=== PATIENT | female | born 1935 | race Caucasian/White ===

== ENCOUNTER 2018-11-12 09:44 | Emergency (ER) | payer MEDICARE ==
[2018-11-12] MEDS ORDERED: Ibuprofen 200 MG TAB ONE (10:22)
== END 2018-11-12 10:41 | disposition home or self-care (01) ==
LOC: BURERS 09:44
DX: J06.9 Acute upper respiratory infection, unspecified (principal); R09.81 Nasal congestion; I10 Essential (primary) hypertension; F03.90 Unspecified dementia, unspecified severity, without behavioral disturbance, psychotic disturbance, mood disturbance, and anxiety; Z79.899 Other long term (current) drug therapy; Z79.82 Long term (current) use of aspirin
CPT/HCPCS: 99283

== ENCOUNTER 2018-12-29 08:25 | Emergency (ER) | payer MEDICARE ==
[2018-12-29] MEDS ORDERED: Benzonatate 100 MG CAP ONE (08:56)
[2018-12-29] MEDS ORDERED: AMOXicillin 250 MG CAP ONE (08:56)
== END 2018-12-29 09:03 | disposition home or self-care (01) ==
LOC: BURERS 08:25
DX: J20.9 Acute bronchitis, unspecified (principal); J02.9 Acute pharyngitis, unspecified; F03.90 Unspecified dementia, unspecified severity, without behavioral disturbance, psychotic disturbance, mood disturbance, and anxiety; I10 Essential (primary) hypertension
CPT/HCPCS: 99283

== ENCOUNTER 2019-01-03 10:02 | Inpatient (IN) | payer MEDICARE ==
[2019-01-03 10:26] LABS: #Basophils 0.1 thou/uL (0.0-0.2); #Lymphocytes 0.6 thou/uL (1.20-3.40); #Monocytes 0.8 thou/uL (0.11-0.59); %Basophils 0.8 % (0.0-1.0); %Eosinophils 0.1 % (0.0-10.0); %Lymphocytes 7.3 % (21.0-51.0); %Monocytes 8.9 % (0.0-10.0); Hemoglobin 14.5 g/dL (12.0-16.0); Mean Corpuscular HGB CONC 31.7 g/dL (32.0-36.0); Mean Corpuscular Hemoglobin 28.7 pg (27.0-31.0); Mean Corpuscular Volume 90.5 fL (78.0-98.0); Mean Platelet Volume 6.1 fL (7.4-10.4); Platelet Count 142 thou/uL (130-400); RBC Distribution Width 13.4 % (11.5-14.5); Red Blood Cell (RBC) Count 5.05 mill/uL (4.20-5.40); White Blood Cell (WBC) Count 8.4 thou/uL (4.8-10.8)
[2019-01-03] MEDS ORDERED: Sodium Chloride 0.9% 100 ML ONE (10:40)
[2019-01-03] MEDS ORDERED: Acetaminophen 500 MG TAB ONE ×2 (10:40→10:41)
[2019-01-03] MEDS ORDERED: Piperacillin/Tazobactam 4.5 GM VIAL ONE (10:40)
[2019-01-03] MEDS ORDERED: Azithromycin 250 MG TAB ONE (10:40)
[2019-01-03 10:43] LABS: Clarity Cloudy (Clear)
[2019-01-03 10:44] LABS: ALT (SGPT) 46 U/L (8-55); AST (SGOT) 35 U/L (5-34); Albumin 4.6 g/dL (3.4-4.8); Alkaline Phosphatase 79 U/L (40-150); Anion Gap 18 mmol/L (10-20); BUN (Urea Nitrogen) 15 mg/dL (9.8-20.1); Bilirubin, Total 0.4 mg/dL (0.2-1.2); Calc. Creatinine Clearance 0 mL/min (70-130); Calcium 10.1 mg/dL (7.8-10.44); Carbon Dioxide 21 mmol/L (23-31); Chloride 104 mmol/L (98-107); Estimated GFR-MDRD 61; Globulin 3.1 g/dL (2.4-3.5); Glucose 118 mg/dL (83-110); Potassium 4.3 mmol/L (3.5-5.1); Protein, Total 7.7 g/dL (6.0-8.3); Sodium 139 mmol/L (136-145)
[2019-01-03 10:44] LABS: Bilirubin Negative (Negative); Blood, Urine Small (Negative); Glucose, Urine (Dipstick) Negative (Negative); Leukocyte Large (Negative); Nitrite Positive (Negative); Protein, Urine (Dipstick) 30 mg/dL (Neg-Trace); Urobilinogen 0.2 mg/dL (Less than 2)
[2019-01-03 10:51] LABS: Bacteria/HPF 4+ HPF (None Seen); Broad Cast None Seen LPF (None Seen); Calcium Oxalate Crystals None Seen HPF (None Seen); Cellular Cast None Seen LPF (None Seen); Crystals/HPF None Seen HPF (Negative); Epithelial Cast None Seen LPF (None Seen); Fatty Cast None Seen LPF (None Seen); Mucous/LPF None Seen LPF (<2+); Other Casts None Seen LPF (None Seen); Oval Fat Bodies/HPF None Seen HPF (None Seen); Red Blood Cell Cast None Seen LPF (None Seen); Renal Epithelial None Seen HPF (None Seen); Sperm/HPF None Seen HPF (None Seen); Squamous Epithelial None Seen HPF (0-3); Transitional Epithelial None Seen HPF (None Seen); Trichomonas/HPF None Seen HPF (None Seen); Triple Phosphate Crystal None Seen HPF (None Seen); Unclassified Crystals None Seen HPF (None Seen); WBC/HPF 21-50 HPF (0-3); Waxy Cast None Seen LPF (None Seen); White Blood Cell Cast None Seen LPF (None Seen); Yeast-Budding None Seen HPF (None Seen); Yeast-Hyphae None Seen HPF (None Seen)
[2019-01-03] MEDS ORDERED: Oseltamivir 75 MG CAP ONE (11:39)
[2019-01-03] MEDS ORDERED: Ondansetron ODT 4 MG TAB PO PRN (12:49)
[2019-01-03] MEDS ORDERED: Acetaminophen 325 MG TAB PO PRN (12:49)
[2019-01-03] MEDS ORDERED: Ondansetron PF 4 MG/2 ML Vial SLOW IVP PRN (12:49)
--- NOTE | 2019-01-03 13:26 | RAD ---
AP PORTABLE CHEST: 01/03/2019 1018 HOURS COMPARISON: None available. FINDINGS: The heart is probably normal in size for age and portable filming. There is no vascular congestion, edema, or pleural effusion. No infiltrate is seen to suggest pneumonia. The bones are mildly osteop enic. There may be some calcific tendinitis in the right shoulder. IMPRESSION: No acute thoracic finding. POS: [facility]
[2019-01-03] MEDS: Dextrose 5 %-0.45 % NaCl 1,000 ML IV SCH (13:47)
[2019-01-03] MEDS: cefTRIAXone\\ROCEPHIN 1 GM in Sodium Chloride 0.9% 100 ML IVPB SCH (13:48)
[2019-01-03] MEDS ORDERED: Oseltamivir 75 MG CAP PO SCH (15:00)
[2019-01-03] MEDS ORDERED: Prevnar 13-Val Conj/PF 0.5 ML SYRINGE IM ONE (19:00)
--- NOTE | 2019-01-04 02:46 | HP ---
CHIEF COMPLAINT: Generalized malaise and fever. HISTORY OF PRESENT ILLNESS: The patient is an elderly white female, who has a history of some [id number] dementia, was brought into the emergency room by her with several-day history of progressive weakness. reports the patient actually has been feeling sick for about three weeks, went to the emergency room a few days ago, was diagnosed with an upper respiratory infection, and placed on amoxicillin. The patient has progressively worsened. Reports a fever of greater than 101.2. states that the patient was so weak on the day of admission that he had to lift her up from the toilet due to her overall malaise. The patient had fevers, chills, decreased appetite with her malaise, as well as a cough, rhinorrhea. The patient denies any dysuria, hematuria, or change in urinary frequency, but she has had significantly decreased appetite. She does report a cough with mainly dry. The patient was evaluated in the emergency room, was diagnosed with possible UTI due to dirty urine, and an influenza A test positive. PAST MEDICAL HISTORY: 1. Hypertension. 2. Dementia, [id number]. The patient is a poor historian. PAST SURGICAL HISTORY: Includes bilateral knee replacement. CURRENT MEDICATIONS: The patient apparently is on hypertensive medications, the dose unknown at this time. We will try to review the patient's office records. ALLERGIES: NO KNOWN DRUG ALLERGIES. SOCIAL HISTORY: No history of alcohol or social drug use. The patient lives with her and historically been independent with her activities of daily living, but again has progressively gotten worse, especially with short-term memory over the last year to two years. REVIEW OF SYSTEMS: The patient denies any visual changes. Sore throat has resolved. The patient reports decreased appetite without nausea or vomiting. The patient has had frequent loose stools without abdominal pain. The patient denies any rashes. No chest pain or shortness of breath other than with cough. The patient denies abdominal pain. No recent significant weight loss. No weight gain. The patient reports generalized achiness, but no focalized back or flank pain. No hematuria reported by patient as well. PHYSICAL EXAMINATION: GENERAL: An elderly white female, tired-appearing, lying in bed. VITAL SIGNS: Temperature was 101.3 in the emergency room, blood pressure was 168/86, pulse was 110, respiratory rate was 20, and O2 saturation was 100% on room air. HEENT: Oropharynx, mucous membranes were slightly dry. No lesions were noted. NECK: Supple. No mass palpated. CHEST: Had coarse breath sounds bilaterally. HEART: Regular rate and rhythm. ABDOMEN: Soft. Bowel sounds positive in all four quadrants. Nontender. No masses are palpated. EXTREMITIES: Showed no cyanosis, clubbing, or edema. DIAGNOSTIC STUDIES: Chest x-ray was performed which showed no acute findings. LABORATORY DATA: CBC had a white count of 8400 with a left shift. Chemistry showed a glucose of 118, non-fasting, otherwise none. No abnormalities. Urinalysis showed small blood, nitrite positive, 4 to 6 rbc's, 21 to 50 wbc's, leukocyte esterase positive, and 4+ bacteria. Urine culture was pending. Influenza A test was performed, and it was positive. ASSESSMENT: 1. Urinary tract infection. The patient appears to be dehydrated. She got a 1 L IV fluid of normal saline in the emergency room. We will continue on her IV fluids and oral fluids as tolerated. The patient likely has a urinary tract infection. Urine culture is pending. We will place her on Rocephin 1 g IV q.24 hours. 2. Flu. The patient influenza A positive, although it sounds like she may have had symptoms for several days. She actually became febrile within the last 24 hours. We will put her on Tamiflu 150 mg p.o. b.i.d. 3. Dementia. The patient is unsure of her medications. We will try to look at her office records, but she may warrant followup for her progressive dementia, likely Alzheimer's type. 4. Disposition. The patient is a fall risk. We will have fall precautions. PLAN: Plan is to be discharge to home, when she has improved. Job ID: [id number]
[2019-01-04 04:44] LABS: ALT (SGPT) 41 U/L (8-55); AST (SGOT) 35 U/L (5-34); Alkaline Phosphatase 62 U/L (40-150); Anion Gap 13 mmol/L (10-20); BUN (Urea Nitrogen) 12 mg/dL (9.8-20.1); Bilirubin, Total 0.4 mg/dL (0.2-1.2); Calc. Creatinine Clearance 0 mL/min (70-130); Calcium 9.3 mg/dL (7.8-10.44); Carbon Dioxide 24 mmol/L (23-31); Chloride 105 mmol/L (98-107); Estimated GFR-MDRD 63; Globulin 2.7 g/dL (2.4-3.5); Glucose 107 mg/dL (83-110); Potassium 3.7 mmol/L (3.5-5.1); Protein, Total 6.7 g/dL (6.0-8.3); Sodium 138 mmol/L (136-145)
[2019-01-04] MEDS: Dextrose 5 %-0.45 % NaCl 1,000 ML IV SCH ×2 (04:57→15:40)
[2019-01-04 05:04] LABS: Hemoglobin 12.7 g/dL (12.0-16.0); Mean Corpuscular HGB CONC 32.3 g/dL (32.0-36.0); Mean Corpuscular Hemoglobin 29.2 pg (27.0-31.0); Mean Corpuscular Volume 90.3 fL (78.0-98.0); Platelet Count 125 thou/uL (130-400); RBC Distribution Width 13.6 % (11.5-14.5); Red Blood Cell (RBC) Count 4.36 mill/uL (4.20-5.40)
[2019-01-04 05:29] LABS: Manual Diff?? YES
[2019-01-04 05:30] LABS: Band 10 % (5-11); Monocytes 12 % (0-10); Neutrophil 48 % (42-75)
[2019-01-04 05:31] LABS: Lymphocytes 30 % (21-51)
[2019-01-04 05:32] LABS: Platelet Morphology Comment Appears Decreased
[2019-01-04 05:33] LABS: RBC Morphology Normal
[2019-01-04] MEDS: Oseltamivir 75 MG CAP PO SCH ×3 (09:00→21:39)
[2019-01-04] MEDS: cefTRIAXone\\ROCEPHIN 1 GM in Sodium Chloride 0.9% 100 ML IVPB SCH (12:45)
[2019-01-05 04:37] VITALS: BP 179/89; TEMP 97.9
[2019-01-05] MEDS: Oseltamivir 75 MG CAP PO SCH (08:49)
[2019-01-05] MEDS ORDERED: cefTRIAXone\\ROCEPHIN 1 GM VIAL IM SCH (13:15)
[2019-01-05] MEDS ORDERED: Lidocaine 1% PF 5 ML VIAL ONE (13:40)
--- NOTE | 2019-01-06 05:38 | DIS ---
DATE OF ADMISSION: 01/03/2019 DATE OF DISCHARGE: 01/05/2019 ADMISSION DIAGNOSES: 1. Influenza A positive. 2. Urinary tract infection with sepsis. 3. Dehydration and weakness. BRIEF SUMMARY OF HISTORY AND PHYSICAL: The patient is an 83-year-old white female, who had a several-day history of progressive weakness, URI like symptoms, decreased appetite, and overall malaise. She was initially seen in the emergency room and diagnosed with the URI and placed on amoxicillin. She worsened, re-presented to the emergency room and at that time was diagnosed with a UTI as well as influenza A positive. Of note, her as well is influenza A positive. BRIEF SUMMARY OF HOSPITAL COURSE: The patient was admitted to the floor. She was placed on IV fluids due to dehydration as well as Rocephin 1 g IV q.24 hours and Tamiflu 75 mg p.o. b.i.d. Urine culture came back greater than 100,000 E coli sensitive to everything but ampicillin. Within the next 24 to 36 hours, the patient had significant dramatic improvement. Her malaise and weakness significantly improved with hydration. Her appetite improved back to her baseline. She was able to ambulate and transfer without difficulties and was eating regular meals to the point where she was stable enough to be discharged on 01/05/2019. The patient was afebrile for greater than 24 hours. DISCHARGE MEDICATIONS: 1. Tamiflu 75 mg p.o. b.i.d. for a full 5-day course. 2. Bactrim double-strength one tablet p.o. b.i.d. for 7 days. Of note, the patient has significant elevated systolic blood pressure in the 160s during her hospital stay. This will need to followed up as an outpatient basis and may need long-term oral medications. Also, the patient has significant short-term memory loss and easy confusion consistent with Alzheimer's type dementia. She would likely need a full outpatient workup to evaluate her dementia, which may have been already occurring under the care of her primary care physician, Dr. Janett Barahona. The patient will follow up with her primary care within 7 to 10 days. Her activity and diet will be as tolerated. Job ID: [id number]
== END 2019-01-05 15:36 | disposition home or self-care (01) | DRG 872 ==
LOC: BURERS 10:02 → BURMED 11:25
PROVIDERS: ADMIT Family Medicine; ATTEND Family Medicine
DX: A41.9 Sepsis, unspecified organism (principal); N39.0 Urinary tract infection, site not specified; I10 Essential (primary) hypertension; Z96.653 Presence of artificial knee joint, bilateral; E86.0 Dehydration; J10.1 Influenza due to other identified influenza virus with other respiratory manifestations; R53.1 Weakness; G30.9 Alzheimer's disease, unspecified; F02.80 Dementia in other diseases classified elsewhere, unspecified severity, without behavioral disturbance, psychotic disturbance, mood disturbance, and anxiety
CPT/HCPCS: 36415; 71045; 80053; 81003; 81015; 83605; 85025; 87040; 87077; 87086; 87186; 87804; A4353; J0696; J2001; J2543; J3490

== ENCOUNTER 2019-05-05 02:15 | Emergency (ER) | payer MEDICARE ==
[2019-05-05 02:35] LABS: Bilirubin Negative (Negative); Blood, Urine Trace (Negative); Clarity Hazy (Clear); Glucose, Urine (Dipstick) Negative (Negative); Leukocyte Large (Negative); Nitrite Negative (Negative); Protein, Urine (Dipstick) Negative (Neg-Trace); Urobilinogen 0.2 mg/dL (Less than 2)
[2019-05-05] MEDS ORDERED: Nitrofurantoin Monohyd/M-Cryst 100 MG CAP ONE (02:42)
[2019-05-05 02:44] LABS: Bacteria/HPF 2+ HPF (None Seen); RBC/HPF 0-3 HPF (0-3); Squamous Epithelial 0-3 HPF (0-3)
== END 2019-05-05 02:47 | disposition home or self-care (01) ==
LOC: BURERS 02:15
DX: N30.00 Acute cystitis without hematuria (principal); I10 Essential (primary) hypertension; F03.90 Unspecified dementia, unspecified severity, without behavioral disturbance, psychotic disturbance, mood disturbance, and anxiety
CPT/HCPCS: 81003; 81015; 87077; 87086; 87186; 99283

== ENCOUNTER 2019-10-26 08:48 | Emergency (ER) | payer MEDICARE ==
[2019-10-26 09:47] LABS: #Eosinphils 0.1 thou/uL (0.0-0.7); #Lymphocytes 1.6 thou/uL (1.20-3.40); #Monocytes 0.5 thou/uL (0.11-0.59); #Neutrophils 3.8 thou/uL (1.40-6.50); %Basophils 0.5 % (0.0-1.0); %Eosinophils 2.1 % (0.0-10.0); %Lymphocytes 26.1 % (21.0-51.0); %Monocytes 8.1 % (0.0-10.0); %Neutrophils 63.3 % (42.0-75.0); Hemoglobin 14.3 g/dL (12.0-16.0); Mean Corpuscular HGB CONC 32.5 g/dL (32.0-36.0); Mean Corpuscular Hemoglobin 29.6 pg (27.0-31.0); Mean Platelet Volume 7.3 fL (7.4-10.4); Platelet Count 174 thou/uL (130-400); RBC Distribution Width 13.1 % (11.5-14.5); Red Blood Cell (RBC) Count 4.84 mill/uL (4.20-5.40)
[2019-10-26 10:01] LABS: ALT (SGPT) 20 U/L (8-55); AST (SGOT) 21 U/L (5-34); Albumin 4.5 g/dL (3.4-4.8); Alkaline Phosphatase 73 U/L (40-110); Anion Gap 15 mmol/L (10-20); BUN (Urea Nitrogen) 17 mg/dL (9.8-20.1); Bilirubin, Total 0.6 mg/dL (0.2-1.2); Calc. Creatinine Clearance 0 mL/min (70-130); Calcium 10.2 mg/dL (7.8-10.44); Carbon Dioxide 26 mmol/L (23-31); Chloride 104 mmol/L (98-107); Estimated GFR-MDRD 60; Globulin 2.9 g/dL (2.4-3.5); Glucose 99 mg/dL (83-110); Lipase 39 U/L (8-78); Potassium 4.5 mmol/L (3.5-5.1); Protein, Total 7.4 g/dL (6.0-8.3); Sodium 140 mmol/L (136-145)
[2019-10-26] MEDS ORDERED: Ondansetron PF 4 MG/2 ML Vial ONE (10:04)
[2019-10-26] MEDS ORDERED: Morphine 2 MG/ML SYRINGE ONE (10:04)
[2019-10-26] MEDS ORDERED: Ketorolac Tromethamine 30 MG/ML VIAL ONE (10:04)
[2019-10-26] MEDS ORDERED: Iopamidol 370 76% 100 ML VIAL ONE (10:11)
--- NOTE | 2019-10-26 10:17 | CT ---
CT ABDOMEN AND PELVIS WITH CONTRAST: 10/27/2019 HISTORY/TECHNIQUE: A spiral CT of the abdomen and pelvis was done for evaluation of left lower quadrant pain. Axial slic es were acquired after giving IV contrast. Oral contrast was withheld by request. FINDINGS: Abdomen: The lung bases are clear. The liver is slightly generous in size but internally it appears n ormal. The spleen, pancreas, adrenal glands and abdominal aorta show no acute findings. There has bee n a prior cholecystectomy. There is a solitary left kidney with a 1.2 cm exophytic cyst attached to i ts lower pole. No right kidney or ectopic kidney is seen. The aorta shows considerable arteriosclerot ic change in it, including at the origins of the celiac, the SMA and the left renal arteries. The bowel shows no distention or wall thickening. There are fluid-filled loops of mainly small bowel, though there is some fluid in the right colon as well. The reynoso are not thick and there is no stran ding around the bowel. A few diverticula are seen in the sigmoid region but there are no current find ings of diverticulitis. No free air or free fluid is seen. Pelvis: CT of the pelvis shows a fat-filled left inguinal hernia. No pelvic masses, free fluid or inf lammatory changes are appreciated. Degenerative changes are present in the lumbar spine with minimal anterolisthesis of L4 and L5 and a degenerated, concentrically bulging disk at L5-S1. IMPRESSION: 1. Nonspecific fluid-filled loops of small bowel but no distention or thickening. No evidence of dive rticulitis at this time. Mild diverticulosis is present. 2. Fat-filled left inguinal hernia. 3. Solitary left kidney. 4. Borderline hepatic size but it otherwise appears normal. Report called to Dr. De La Rosa at 0959 hours on 10/26/2019. CODE CR POS: HOME
--- NOTE | 2019-10-26 10:21 | RAD ---
PORTABLE CHEST: 10/26/2019 HISTORY/TECHNIQUE: An AP portable film at 0957 shows mild cardiomegaly that is comparable to the prior study. FINDINGS: There is no vascular congestion, edema or pleural effusion. Some minor scarring is suggested in the l leonel bases, especially around the cardiac apex. No lobar infiltrates are seen. Calcification of the ao rta is evident. IMPRESSION: Mild cardiomegaly with little difference since the 2019 study. POS: [facility]
[2019-10-26 10:42] LABS: Bilirubin Negative (Negative); Blood, Urine Trace (Negative); Clarity Cloudy (Clear); Glucose, Urine (Dipstick) Negative (Negative); Leukocyte Large (Negative); Nitrite Positive (Negative); Protein, Urine (Dipstick) Negative (Neg-Trace); Urobilinogen 0.2 mg/dL (Less than 2)
[2019-10-26 10:44] LABS: Bacteria/HPF 4+ HPF (None Seen); Broad Cast None Seen LPF (None Seen); Calcium Oxalate Crystals None Seen HPF (None Seen); Cellular Cast None Seen LPF (None Seen); Epithelial Cast None Seen LPF (None Seen); Fatty Cast None Seen LPF (None Seen); Mucous/LPF None Seen LPF (<2+); Other Casts None Seen LPF (None Seen); Oval Fat Bodies/HPF None Seen HPF (None Seen); RBC/HPF 0-3 HPF (0-3); Red Blood Cell Cast None Seen LPF (None Seen); Renal Epithelial None Seen HPF (None Seen); Sperm/HPF None Seen HPF (None Seen); Transitional Epithelial None Seen HPF (None Seen); Trichomonas/HPF None Seen HPF (None Seen); Triple Phosphate Crystal None Seen HPF (None Seen); Unclassified Crystals None Seen HPF (None Seen); WBC/HPF Greater Than 50 HPF (0-3); Waxy Cast None Seen LPF (None Seen); White Blood Cell Cast None Seen LPF (None Seen); Yeast-Budding None Seen HPF (None Seen); Yeast-Hyphae None Seen HPF (None Seen)
[2019-10-26] MEDS ORDERED: Cephalexin 250 MG CAP ONE (10:54)
== END 2019-10-26 11:16 | disposition home or self-care (01) ==
LOC: BURERS 08:48
DX: N30.00 Acute cystitis without hematuria (principal); I10 Essential (primary) hypertension; F03.90 Unspecified dementia, unspecified severity, without behavioral disturbance, psychotic disturbance, mood disturbance, and anxiety
CPT/HCPCS: 71045; 74177; 80053; 81003; 81015; 83690; 85025; 87077; 87086; 87186; 93005; 96374; 96375; A4353; J1885; J2270; J2405; Q9967

== ENCOUNTER 2020-01-07 12:17 | Emergency (ER) | payer MEDICARE ==
[2020-01-07 13:11] LABS: #Eosinphils 0.1 thou/uL (0.0-0.7); #Lymphocytes 1.8 thou/uL (1.20-3.40); #Monocytes 0.6 thou/uL (0.11-0.59); #Neutrophils 4.7 thou/uL (1.40-6.50); %Basophils 0.6 % (0.0-1.0); %Eosinophils 1.2 % (0.0-10.0); %Lymphocytes 24.7 % (21.0-51.0); %Monocytes 8.1 % (0.0-10.0); %Neutrophils 65.3 % (42.0-75.0); Hemoglobin 12.7 g/dL (12.0-16.0); Mean Corpuscular HGB CONC 30.9 g/dL (32.0-36.0); Mean Corpuscular Hemoglobin 29.4 pg (27.0-31.0); Mean Corpuscular Volume 94.9 fL (78.0-98.0); Mean Platelet Volume 6.8 fL (7.4-10.4); Platelet Count 164 thou/uL (130-400); RBC Distribution Width 13.1 % (11.5-14.5); Red Blood Cell (RBC) Count 4.32 mill/uL (4.20-5.40); White Blood Cell (WBC) Count 7.1 thou/uL (4.8-10.8)
[2020-01-07 13:26] LABS: ALT (SGPT) 12 U/L (8-55); AST (SGOT) 17 U/L (5-34); Albumin 4.1 g/dL (3.4-4.8); Alkaline Phosphatase 55 U/L (40-110); Anion Gap 13 mmol/L (10-20); BUN (Urea Nitrogen) 24 mg/dL (9.8-20.1); Bilirubin, Total 0.6 mg/dL (0.2-1.2); Calc. Creatinine Clearance 0 mL/min (70-130); Calcium 9.3 mg/dL (7.8-10.44); Carbon Dioxide 23 mmol/L (23-31); Chloride 108 mmol/L (98-107); Estimated GFR-MDRD 66; Globulin 2.5 g/dL (2.4-3.5); Glucose 100 mg/dL (83-110); Lipase 22 U/L (8-78); Potassium 4.1 mmol/L (3.5-5.1); Protein, Total 6.6 g/dL (6.0-8.3); Sodium 140 mmol/L (136-145)
[2020-01-07 13:48] LABS: Bilirubin Negative (Negative); Blood, Urine Small (Negative); Glucose, Urine (Dipstick) Negative (Negative); Ketone, Urine Negative (Negative); Leukocyte Moderate (Negative); Nitrite Positive (Negative); Protein, Urine (Dipstick) Negative (Neg-Trace); Specific Gravity, Urine 1.025 (1.005-1.030); Urobilinogen 0.2 mg/dL (Less than 2); pH, Urine 5.5 (5.0-9.0)
[2020-01-07 13:52] LABS: Clarity Cloudy (Clear); RBC/HPF 0-3 HPF (0-3); Squamous Epithelial 0-3 HPF (0-3); WBC/HPF Greater Than 50 HPF (0-3)
[2020-01-07 13:53] LABS: Bacteria/HPF 4+ HPF (None Seen)
[2020-01-07] MEDS ORDERED: cefTRIAXone\\ROCEPHIN 1 GM VIAL ONE (14:02)
--- NOTE | 2020-01-07 15:45 | CT ---
CT ABDOMEN AND PELVIS WITHOUT CONTRAST: 01/07/20 Comparison is made with a 10/26/19 study. The lung bases showed no acute infiltrates or effusions. The liver, spleen, pancreas, adrenal glands, and aorta showed no acute findings within the limitations of a noncontrast study. The aorta is dense ly calcified. There has been a prior cholecystectomy. Only a left kidney is seen. Aside from a small cyst in the lower pole, no specific abnormality was seen, and it does not appear much different than before. The bowel shows no distention. There is diverticulosis but no convincing findings of diverticulitis a t the moment. Some of the reynoso of the ascending and descending colon might initially appear a little thick, but the colon is collapsed and not well distended, so I would hesitate to put too much meanin g on the finding. There are no inflammatory changes seen around bowel at all. No free air or free flu id was present. CT of the pelvis shows no pelvis masses, fluid collections or inflammatory changes. IMPRESSION: Diverticulosis without convincing findings of diverticulitis. There are, therefore, no acute changes visualized. POS: HOME
== END 2020-01-07 14:40 | disposition home or self-care (01) ==
LOC: BURERS 12:17
DX: N39.0 Urinary tract infection, site not specified (principal); R19.7 Diarrhea, unspecified; I10 Essential (primary) hypertension; F03.90 Unspecified dementia, unspecified severity, without behavioral disturbance, psychotic disturbance, mood disturbance, and anxiety
CPT/HCPCS: 36415; 74176; 80053; 81003; 81015; 83605; 83690; 85025; 87077; 87086; 87186; 96361; 96365; J0696

== ENCOUNTER 2020-02-02 09:38 | Emergency (ER) | payer MEDICARE ==
[2020-02-02 10:40] LABS: Bilirubin Negative (Negative); Blood, Urine Small (Negative); Glucose, Urine (Dipstick) Negative (Negative); Ketone, Urine Negative (Negative); Leukocyte Moderate (Negative); Nitrite Positive (Negative); Protein, Urine (Dipstick) Negative (Neg-Trace); Specific Gravity, Urine 1.025 (1.005-1.030); Urobilinogen 0.2 mg/dL (Less than 2)
[2020-02-02 10:43] LABS: Clarity Cloudy (Clear)
[2020-02-02 10:44] LABS: Bacteria/HPF 4+ HPF (None Seen); Squamous Epithelial 0-3 HPF (0-3); WBC/HPF Greater Than 50 HPF (0-3)
[2020-02-02] MEDS ORDERED: Sulfameth/Trimethoprim DS 800-160mg TAB ONE (11:02)
--- NOTE | 2020-02-02 11:42 | CT ---
CT LUMBAR SPINE WITHOUT CONTRAST: Date: 02/02/[address] of lumbar spine was performed with multiplanar reconstruction. No fracture or area of bony destruction seen at any level. Findings by level follow: T12-L1: No acute findings. L1-L2: No acute findings. L2-L3: Mild facet arthritis. Mild ligamentous thickening. L3-L4: Mild spondylolisthesis of L3 on L4 due to moderately severe facet arthritis. Slight crowding of the thecal sac at this level. L4-L5: Slight spondylolisthesis due to severe facet arthritis. Moderate central canal stenosis due t o facet overgrowth and a bulging disc. On the left side, the disc may just touch the exiting L4 root. L5-S1: Degenerated disc with disc space narrowing. No focal disc protrusion. Facet arthritis. Incidental finding of significant calcified plaque formation at the bifurcation of the aorta that cau ses some significant stenosis of the proximal left common iliac artery. IMPRESSION: 1. Moderate spinal stenosis L4-L5, mild spinal stenosis L3-L4. 2. Mildly bulging disc at L5-S1 without any obvious impingement or focal protrusion. 3. Significant facet arthritis, particularly L3 and below. 4. Concentric bulging of the disc at L4-L5 may just touch the left L4 root. If a left L4 radiculopat hy were present, then the finding would take on more meaning. 5. Stenosis of proximal left common iliac artery at its origin due to plaque at the bifurcation. Findings discussed with Dr. Solorzano at 1034 hours on 02/02/2020. CODE CR. POS: HOME
--- NOTE | 2020-02-02 11:44 | CT ---
CT BRAIN WITHOUT CONTRAST: Date: 02/02/2020 The ventricles are normal in size for age and atrophy. Mild patchy hypolucency in the deep white brandon er is typical of chronic microvascular ischemic change. A tiny lacunar infarct is suggested in the ri ght basal ganglia, which is most likely old. There were no findings strongly suggestive of acute stro ke, mass, or edema. The calvarium appears intact. The visible paranasal sinuses and mastoid air cells are clear. IMPRESSION: Chronic ischemic changes as noted, but no acute intracranial findings. Preliminary report called to Dr. Solorazno at 1034 hours on 02/02/2020. CODE CR. POS: HOME
== END 2020-02-02 11:26 | disposition home or self-care (01) ==
LOC: BURERS 09:38
DX: I73.9 Peripheral vascular disease, unspecified (principal); M54.32 Sciatica, left side; N39.0 Urinary tract infection, site not specified; F03.90 Unspecified dementia, unspecified severity, without behavioral disturbance, psychotic disturbance, mood disturbance, and anxiety
CPT/HCPCS: 70450; 72131; 81003; 81015; 87077; 87086; 87186

== ENCOUNTER 2020-02-17 12:53 | Emergency (ER) | payer MEDICARE ==
[2020-02-17 13:38] LABS: #Eosinphils 0.1 thou/uL (0.0-0.7); #Lymphocytes 1.7 thou/uL (1.20-3.40); #Monocytes 0.6 thou/uL (0.11-0.59); %Basophils 0.5 % (0.0-1.0); %Eosinophils 1.2 % (0.0-10.0); %Lymphocytes 22.6 % (21.0-51.0); %Monocytes 8.2 % (0.0-10.0); %Neutrophils 67.5 % (42.0-75.0); Hemoglobin 12.7 g/dL (12.0-16.0); Mean Corpuscular HGB CONC 31.1 g/dL (32.0-36.0); Mean Corpuscular Hemoglobin 29.9 pg (27.0-31.0); Mean Platelet Volume 6.8 fL (7.4-10.4); Platelet Count 161 thou/uL (130-400); RBC Distribution Width 12.8 % (11.5-14.5); Red Blood Cell (RBC) Count 4.26 mill/uL (4.20-5.40); White Blood Cell (WBC) Count 7.4 thou/uL (4.8-10.8)
[2020-02-17 13:54] LABS: Bilirubin Small (Negative); Blood, Urine Negative (Negative); Clarity Clear (Clear); Glucose, Urine (Dipstick) Negative (Negative); Ketone, Urine Trace mg/dL (Negative); Leukocyte Negative (Negative); Nitrite Negative (Negative); Protein, Urine (Dipstick) Negative (Neg-Trace); Specific Gravity, Urine 1.025 (1.005-1.030); pH, Urine 5.5 (5.0-9.0)
[2020-02-17 14:01] LABS: ALT (SGPT) 13 U/L (8-55); AST (SGOT) 15 U/L (5-34); Albumin 4.1 g/dL (3.4-4.8); Alkaline Phosphatase 50 U/L (40-110); Anion Gap 14 mmol/L (10-20); BUN (Urea Nitrogen) 23 mg/dL (9.8-20.1); Bilirubin, Total 0.5 mg/dL (0.2-1.2); Calc. Creatinine Clearance 0 mL/min (70-130); Calcium 9.2 mg/dL (7.8-10.44); Carbon Dioxide 23 mmol/L (23-31); Chloride 106 mmol/L (98-107); Estimated GFR-MDRD 52; Globulin 2.4 g/dL (2.4-3.5); Glucose 92 mg/dL (83-110); Potassium 4.7 mmol/L (3.5-5.1); Protein, Total 6.5 g/dL (6.0-8.3); Sodium 138 mmol/L (136-145)
== END 2020-02-17 14:36 | disposition home or self-care (01) ==
LOC: BURERS 12:53
DX: S40.021A Contusion of right upper arm, initial encounter (principal); S30.0XXA Contusion of lower back and pelvis, initial encounter; S20.211A Contusion of right front wall of thorax, initial encounter; F03.90 Unspecified dementia, unspecified severity, without behavioral disturbance, psychotic disturbance, mood disturbance, and anxiety; Z79.899 Other long term (current) drug therapy; W19.XXXA Unspecified fall, initial encounter
CPT/HCPCS: 36415; 51701; 80053; 81003; 85025; 93005

== ENCOUNTER 2020-04-16 07:42 | Emergency (ER) | payer MEDICARE ==
[2020-04-16 08:23] LABS: Bilirubin Negative (Negative); Blood, Urine Trace (Negative); Clarity Cloudy (Clear); Glucose, Urine (Dipstick) Negative (Negative); Ketone, Urine Negative (Negative); Leukocyte Large (Negative); Nitrite Negative (Negative); Protein, Urine (Dipstick) Negative (Neg-Trace); Urobilinogen 0.2 mg/dL (Less than 2); pH, Urine 6.5 (5.0-9.0)
[2020-04-16 08:30] LABS: RBC/HPF 0-3 HPF (0-3)
[2020-04-16 08:31] LABS: Bacteria/HPF 3+ HPF (None Seen)
[2020-04-16] MEDS ORDERED: Sulfameth/Trimethoprim DS 800-160mg TAB ONE (08:40)
== END 2020-04-16 08:43 | disposition home or self-care (01) ==
LOC: BURERS 07:42
DX: N39.0 Urinary tract infection, site not specified (principal); I10 Essential (primary) hypertension; F03.90 Unspecified dementia, unspecified severity, without behavioral disturbance, psychotic disturbance, mood disturbance, and anxiety; Z79.899 Other long term (current) drug therapy
CPT/HCPCS: 81003; 81015; 99283

== ENCOUNTER 2020-05-12 08:20 | Emergency (ER) | payer MEDICARE ==
--- NOTE | 2020-05-12 09:23 | CT ---
CT head noncontrast HISTORY: Fall. Head injury. COMPARISON: 02/02/2020. FINDINGS: There is no evidence of acute intracranial hemorrhage or infarct. Scattered chronic ischemi c small vessel disease throughout the periventricular white matter is again demonstrated. Old lacunar infarcts at the right basal ganglia. There is no mass effect or shift of midline structures. Tiny dystrophic calcification associated with the left optic nerve sheath is now better visualized. Prominent calcification within the arterial structures of the brain base. IMPRESSION : No acute intracranial abnormalities are demonstrated. Atherosclerosis.
--- NOTE | 2020-05-12 09:36 | RAD ---
CHEST 1 VIEW: COMPARISON: 10/26/2019. HISTORY: Fall. Pain. FINDINGS: Atherosclerosis of the aorta. Normal cardiac silhouette. The pulmonary vessels and hilum are normal . Costophrenic angles are clear. Lungs are hyperinflated with chronic changes. No consolidation or mass. NO pneumothorax or acute osseous abnormality. IMPRESSION: 1. Atherosclerosis. 2. No acute cardiopulmonary process. POS: [facility]
[2020-05-12 09:49] LABS: Hemoglobin 14.4 g/dL (12.0-16.0); Mean Corpuscular HGB CONC 33.2 g/dL (32.0-36.0); Mean Corpuscular Hemoglobin 30.8 pg (27.0-31.0); Mean Corpuscular Volume 92.8 fL (78.0-98.0); Mean Platelet Volume 8.7 fL (7.4-10.4); Platelet Count 119 thou/uL (130-400); RBC Distribution Width 12.9 % (11.5-14.5); Red Blood Cell (RBC) Count 4.66 mill/uL (4.20-5.40); White Blood Cell (WBC) Count 6.5 thou/uL (4.8-10.8)
[2020-05-12 09:53] LABS: Bilirubin Negative (Negative); Blood, Urine Moderate (Negative); Clarity Cloudy (Clear); Glucose, Urine (Dipstick) Negative (Negative); Ketone, Urine 40 mg/dL (Negative); Leukocyte Small (Negative); Nitrite Positive (Negative); Protein, Urine (Dipstick) 100 mg/dL (Neg-Trace); Specific Gravity, Urine 1.025 (1.005-1.030); Urobilinogen 0.2 mg/dL (Less than 2); pH, Urine 5.5 (5.0-9.0)
[2020-05-12 09:59] LABS: Bacteria/HPF 4+ HPF (None Seen); WBC/HPF 21-50 HPF (0-3)
[2020-05-12 10:00] LABS: Oval Fat Bodies/HPF Rare HPF (None Seen)
[2020-05-12 10:03] LABS: Anion Gap 18 mmol/L (10-20); BUN (Urea Nitrogen) 18 mg/dL (9.8-20.1); CK (CPK) 4974 U/L (29-168); Calc. Creatinine Clearance 0 mL/min (70-130); Calcium 9.3 mg/dL (7.8-10.44); Carbon Dioxide 23 mmol/L (23-31); Chloride 102 mmol/L (98-107); Estimated GFR-MDRD 61; Glucose 83 mg/dL (83-110); Potassium 3.6 mmol/L (3.5-5.1); Sodium 139 mmol/L (136-145)
[2020-05-12] MEDS ORDERED: Enoxaparin Sodium 40 MG/0.4 ML SYRINGE ONE ×2 (10:15→10:17)
[2020-05-12] MEDS ORDERED: Aspirin Chewable 81 MG TAB ONE (10:15)
[2020-05-12] MEDS ORDERED: cefTRIAXone\\ROCEPHIN 1 GM VIAL ONE (10:15)
[2020-05-12] MEDS ORDERED: Nitroglycerin 50 MG/250 ML BOT 250 ML ONE (10:15)
[2020-05-12] MEDS ORDERED: Sodium Chloride 0.9% 100 ML ONE (10:15)
[2020-05-12 10:17] LABS: CKMB 18.6 ng/mL (0-6.6)
[2020-05-12 10:24] LABS: Band 25 % (5-11); Lymphocytes 23 % (21-51); MDiff Complete? YES; Monocytes 14 % (0-10); Neutrophil 35 % (42-75); Platelet Morphology Comment Appears Adequate; Reactive Lymphocytes 3 % (0-10)
--- NOTE | 2020-05-12 10:29 | RAD ---
1 VIEW PELVIS: Date: 05/12/2020 HISTORY: Fall. Pain. FINDINGS: Sacral ala are preserved. Bony pelvis is intact. Obturator rings are intact. Contour of both femoral heads are maintained. No fracture. Symmetric hip joint spaces. Atherosclerosis identified. IMPRESSION: No evidence of fracture. POS: [facility]
--- NOTE | 2020-05-12 10:46 | CT ---
CT OF THE CERVICAL SPINE WITHOUT CONTRAST: Date: 05/12/2020 INDICATION: History of fall and neck pain. COMPARISON: None. FINDINGS: The spinal alignment is within normal limits. Bone mineralization appears within normal limits. Crani ocervical alignment appears within normal limits. Mastoid air cells and visualized posterior mandible appear intact. No displaced fracture is demonstrated. The visualized prevertebral and paravertebral soft tissues cristo ear within normal limits. Lung apices are clear. There is heterogeneity of the thyroid gland. There i s moderate calcification of the visualized common carotid, carotid bulbs, and proximal internal and e xternal carotid arteries. IMPRESSION: 1. No acute fracture or subluxation. 2. Mild spondylosis of the cervical spine. POS: [facility]
[2020-05-12] MEDS ORDERED: Iopamidol 370 76% 100 ML VIAL ONE (12:49)
--- NOTE | 2020-05-12 13:37 | CT ---
CT ANGIOGRAM OF THORACIC AND ABDOMINAL AORTA CT AORTIC DISSECTION PROTOCOL: Date: 05/12/2020 COMPARISON: None. CORRELATION: Stone protocol CT and abdomen/pelvic CT dated 01/07/2020 and 10/26/2019 respectively. TECHNIQUE: CT angiogram of the thoracic and abdominal aorta performed in the axial plane. 3-D reformatted images are submitted for interpretation. FINDINGS: CHEST CT: Heterogeneous thyroid gland. No evidence of axillary lymphadenopathy. No mediastinal mass, lymphadenopathy, or hematoma. Heart size is normal. No significant pericardial fluid. There is adequate contrast opacification of pulmonary arterial system to level of segmental arteries. No filling defect to suggest thromboembolism. Trachea and central bronchi are patent. Scattered ground-glass opacities are nonspecific. There is a ground-glass nodule in the superior segment of the left lower lobe measuring 0.6 x 0.5 cm. No pleural effusion or pneumothorax. Trachea and central bronchi are patent. ABDOMEN CT: There is appropriate arterial phase enhancement of the liver, spleen, pancreas, and adrenal glands. Absent right kidney, similar to the previous exam. There is evidence of postsurgical change compatibl e with nephrectomy and cholecystectomy. No mesenteric mass, lymphadenopathy, free air, or free fluid. Limited evaluation of the alimentary canal by lack of oral contrast. No evidence of bowel obstruction . No mesenteric mass, lymphadenopathy, free air, or free fluid. Limited evaluation of the abdomen due to motion degradation. There are no lytic or blastic lesions in the osseous structures. Grade I anterolisthesis of L4 upon L 5. CT ANGIOGRAM: There is appropriate enhancement and luminal diameter at the root of the aorta, ascending thoracic ao rta, aortic arch, descending thoracic aorta, and abdominal aorta. No evidence of dissection or aneury sm. There is appropriate enhancement at the origin of the great vessels of the neck. There is appropr iate enhancement of the left renal artery ostium. There is mild atherosclerotic disease. Solitary lef t renal artery. There is atherosclerosis with moderate luminal narrowing at the origin of the celiac artery. Atherosclerosis and mild narrowing at the origin of the superior mesenteric artery. Inferior mesenteric artery appears to be patent. Visualized iliac arteries are patent. IMPRESSION: 1. No evidence of aneurysm or dissection. 2. Findings compatible with right nephrectomy and cholecystectomy. 3. Atherosclerosis involving the abdominal vasculature as detailed above. 4. Ground-glass nodule in the superior segment of the left lower lobe. CODE LN.
== END 2020-05-12 13:15 | disposition short-term general hospital (02) ==
LOC: BURERS 08:20
DX: I21.4 Non-ST elevation (NSTEMI) myocardial infarction (principal); I16.1 Hypertensive emergency; I10 Essential (primary) hypertension; Z79.899 Other long term (current) drug therapy
CPT/HCPCS: 51701; 70450; 71045; 71275; 72125; 72170; 74174; 80048; 81003; 81015; 82550; 82553; 84484; 85025; 93005; 96365; 96368; 96372; J0696; J1650; J3490; Q9967

== ENCOUNTER 2020-05-19 11:22 | Inpatient (IN) | payer MEDICARE ==
[2020-05-19] MEDS ORDERED: hydrALAZINE 25 MG TAB PO SCH (15:15)
[2020-05-19 16:22] VITALS: BMI 27.2
[2020-05-19] MEDS: Cefdinir 300 MG CAP PO SCH (21:29)
[2020-05-19] MEDS: hydrALAZINE 25 MG TAB PO SCH (21:29)
[2020-05-20 05:24] LABS: #Eosinphils 0.1 thou/uL (0.0-0.7); #Lymphocytes 0.9 thou/uL (1.20-3.40); #Monocytes 0.5 thou/uL (0.11-0.59); #Neutrophils 3.4 thou/uL (1.40-6.50); %Basophils 0.4 % (0.0-1.0); %Eosinophils 1.7 % (0.0-10.0); %Monocytes 10.5 % (0.0-10.0); %Neutrophils 69.5 % (42.0-75.0); Hemoglobin 12.5 g/dL (12.0-16.0); Mean Corpuscular HGB CONC 33.4 g/dL (32.0-36.0); Mean Corpuscular Volume 89.8 fL (78.0-98.0); Mean Platelet Volume 8.7 fL (7.4-10.4); Platelet Count 147 thou/uL (130-400); RBC Distribution Width 12.7 % (11.5-14.5); Red Blood Cell (RBC) Count 4.15 mill/uL (4.20-5.40); White Blood Cell (WBC) Count 4.8 thou/uL (4.8-10.8)
[2020-05-20 05:35] LABS: ALT (SGPT) 107 U/L (8-55); AST (SGOT) 126 U/L (5-34); Albumin 3.4 g/dL (3.4-4.8); Alkaline Phosphatase 56 U/L (40-110); Anion Gap 15 mmol/L (10-20); BUN (Urea Nitrogen) 12 mg/dL (9.8-20.1); Bilirubin, Total 0.6 mg/dL (0.2-1.2); Calc. Creatinine Clearance 66 mL/min (70-130); Calcium 8.8 mg/dL (7.8-10.44); Carbon Dioxide 24 mmol/L (23-31); Chloride 104 mmol/L (98-107); Globulin 2.5 g/dL (2.4-3.5); Glucose 102 mg/dL (83-110); Potassium 3.1 mmol/L (3.5-5.1); Protein, Total 5.9 g/dL (6.0-8.3); Sodium 140 mmol/L (136-145)
[2020-05-20] MEDS ORDERED: Potassium Chloride 20 MEQ TAB PO SCH (06:45)
[2020-05-20] MEDS: Amiodarone 200 MG TAB PO SCH ×2 (08:51→08:53)
[2020-05-20] MEDS: hydrALAZINE 25 MG TAB PO SCH ×3 (08:52→20:51)
[2020-05-20] MEDS: Cefdinir 300 MG CAP PO SCH ×2 (08:53→20:50)
[2020-05-20] MEDS: Aspirin 325 mg Enteric Coated Tablet PO SCH (08:53)
[2020-05-20] MEDS: Potassium Chloride 20 MEQ TAB PO SCH (08:54)
[2020-05-20] MEDS ORDERED: FLU VACC QS2020-21(65YR UP)/PF 240 MCG/0.7 ML SYRINGE IM ONE (09:00)
[2020-05-21] MEDS: Aspirin 325 mg Enteric Coated Tablet PO SCH (08:40)
[2020-05-21] MEDS: Cefdinir 300 MG CAP PO SCH ×2 (08:41→20:35)
[2020-05-21] MEDS: Potassium Chloride 20 MEQ TAB PO SCH (08:41)
[2020-05-21] MEDS: hydrALAZINE 25 MG TAB PO SCH ×3 (08:42→20:35)
[2020-05-21] MEDS: Fluconazole 100 MG TAB PO SCH (17:38)
[2020-05-22 05:26] LABS: Hemoglobin 12.7 g/dL (12.0-16.0); Mean Corpuscular HGB CONC 32.3 g/dL (32.0-36.0); Mean Corpuscular Hemoglobin 29.4 pg (27.0-31.0); Mean Platelet Volume 9.3 fL (7.4-10.4); Platelet Count 150 thou/uL (130-400); RBC Distribution Width 12.6 % (11.5-14.5); Red Blood Cell (RBC) Count 4.34 mill/uL (4.20-5.40)
[2020-05-22 05:36] LABS: ALT (SGPT) 85 U/L (8-55); AST (SGOT) 56 U/L (5-34); Albumin 3.5 g/dL (3.4-4.8); Alkaline Phosphatase 56 U/L (40-110); Anion Gap 13 mmol/L (10-20); BUN (Urea Nitrogen) 12 mg/dL (9.8-20.1); Bilirubin, Total 0.8 mg/dL (0.2-1.2); Calc. Creatinine Clearance 66 mL/min (70-130); Carbon Dioxide 25 mmol/L (23-31); Chloride 101 mmol/L (98-107); Globulin 2.5 g/dL (2.4-3.5); Glucose 104 mg/dL (83-110); Potassium 3.4 mmol/L (3.5-5.1); Sodium 136 mmol/L (136-145)
[2020-05-22 05:46] LABS: Lymphocytes 17 % (21-51); MDiff Complete? YES; Monocytes 13 % (0-10); Neutrophil 64 % (42-75); Platelet Morphology Comment Appears Adequate; RBC Morphology Normal; Reactive Lymphocytes 6 % (0-10)
[2020-05-22] MEDS: Aspirin 325 mg Enteric Coated Tablet PO SCH (08:23)
[2020-05-22] MEDS: Cefdinir 300 MG CAP PO SCH (08:23)
[2020-05-22] MEDS: Potassium Chloride 20 MEQ TAB PO SCH ×3 (08:23→08:36)
[2020-05-22] MEDS: Amiodarone 200 MG TAB PO SCH (08:25)
[2020-05-22] MEDS: hydrALAZINE 25 MG TAB PO SCH ×3 (08:26→20:28)
[2020-05-22] MEDS: Fluconazole 100 MG TAB PO SCH (17:16)
[2020-05-23] MEDS: Potassium Chloride 20 MEQ TAB PO SCH (07:56)
[2020-05-23] MEDS: Aspirin 325 mg Enteric Coated Tablet PO SCH (07:56)
[2020-05-23] MEDS: hydrALAZINE 25 MG TAB PO SCH ×3 (07:57→20:59)
[2020-05-23] MEDS: Amiodarone 200 MG TAB PO SCH (07:57)
[2020-05-23] MEDS: Fluconazole 100 MG TAB PO SCH (17:21)
[2020-05-24] MEDS: Aspirin 325 mg Enteric Coated Tablet PO SCH (07:53)
[2020-05-24] MEDS: Amiodarone 200 MG TAB PO SCH (07:53)
[2020-05-24] MEDS: hydrALAZINE 25 MG TAB PO SCH ×3 (07:54→20:53)
[2020-05-24] MEDS: Potassium Chloride 20 MEQ TAB PO SCH (07:54)
[2020-05-24] MEDS: Fluconazole 100 MG TAB PO SCH (17:18)
[2020-05-24] MEDS: Megestrol Acetate 40 MG TAB PO SCH (20:53)
[2020-05-25 05:08] LABS: ALT (SGPT) 42 U/L (8-55); AST (SGOT) 23 U/L (5-34); Albumin 3.5 g/dL (3.4-4.8); Alkaline Phosphatase 54 U/L (40-110); Anion Gap 13 mmol/L (10-20); BUN (Urea Nitrogen) 18 mg/dL (9.8-20.1); Bilirubin, Total 0.6 mg/dL (0.2-1.2); Calc. Creatinine Clearance 52 mL/min (70-130); Calcium 9.5 mg/dL (7.8-10.44); Carbon Dioxide 28 mmol/L (23-31); Chloride 101 mmol/L (98-107); Globulin 2.7 g/dL (2.4-3.5); Glucose 124 mg/dL (83-110); Potassium 4.7 mmol/L (3.5-5.1); Protein, Total 6.2 g/dL (6.0-8.3); Sodium 137 mmol/L (136-145)
[2020-05-25] MEDS: Megestrol Acetate 40 MG TAB PO SCH ×2 (08:40→20:34)
[2020-05-25] MEDS: Aspirin 325 mg Enteric Coated Tablet PO SCH (08:40)
[2020-05-25] MEDS: Potassium Chloride 20 MEQ TAB PO SCH (08:40)
[2020-05-25] MEDS: Amiodarone 200 MG TAB PO SCH (08:41)
[2020-05-25] MEDS: hydrALAZINE 25 MG TAB PO SCH ×3 (08:43→20:34)
[2020-05-25] MEDS: Amlodipine 5 MG TAB PO SCH (08:44)
[2020-05-25] MEDS: Fluconazole 100 MG TAB PO SCH (17:13)
[2020-05-25] MEDS: Docusate 100 MG CAP PO SCH (20:34)
[2020-05-26] MEDS: hydrALAZINE 25 MG TAB PO SCH ×3 (09:37→21:16)
[2020-05-26] MEDS: Aspirin 325 mg Enteric Coated Tablet PO SCH (09:38)
[2020-05-26] MEDS: Potassium Chloride 20 MEQ TAB PO SCH (09:38)
[2020-05-26] MEDS: Docusate 100 MG CAP PO SCH ×2 (09:38→21:16)
[2020-05-26] MEDS: Megestrol Acetate 40 MG TAB PO SCH ×2 (09:39→21:16)
[2020-05-26] MEDS: Amiodarone 200 MG TAB PO SCH (09:39)
[2020-05-26] MEDS: Amlodipine 5 MG TAB PO SCH (09:39)
[2020-05-26] MEDS: Fluconazole 100 MG TAB PO SCH (17:14)
[2020-05-27] MEDS: hydrALAZINE 25 MG TAB PO SCH ×3 (08:42→20:59)
[2020-05-27] MEDS: Potassium Chloride 20 MEQ TAB PO SCH (08:43)
[2020-05-27] MEDS: Amiodarone 200 MG TAB PO SCH (08:44)
[2020-05-27] MEDS: Docusate 100 MG CAP PO SCH ×2 (08:44→20:58)
[2020-05-27] MEDS: Amlodipine 5 MG TAB PO SCH (08:44)
[2020-05-27] MEDS: Megestrol Acetate 40 MG TAB PO SCH ×2 (08:44→20:58)
[2020-05-27] MEDS: Aspirin 325 mg Enteric Coated Tablet PO SCH (08:45)
[2020-05-27] MEDS: Fluconazole 100 MG TAB PO SCH (17:55)
[2020-05-28] MEDS: Polyethylene Glycol 3350 17 GM Packet PO PRN (09:21)
[2020-05-28] MEDS: Docusate 100 MG CAP PO SCH ×2 (09:22→20:54)
[2020-05-28] MEDS: Amiodarone 200 MG TAB PO SCH (09:22)
[2020-05-28] MEDS: Potassium Chloride 20 MEQ TAB PO SCH (09:22)
[2020-05-28] MEDS: Aspirin 325 mg Enteric Coated Tablet PO SCH (09:22)
[2020-05-28] MEDS: Megestrol Acetate 40 MG TAB PO SCH ×2 (09:23→20:54)
[2020-05-28] MEDS: Amlodipine 5 MG TAB PO SCH (09:23)
[2020-05-28] MEDS: hydrALAZINE 25 MG TAB PO SCH ×3 (09:24→20:53)
[2020-05-28] MEDS ORDERED: Bisacodyl 10 MG SUPP PR PRN (11:07)
[2020-05-28] MEDS ORDERED: Milk Of Magnesia 30 ML UDCUP PO PRN (11:07)
[2020-05-28] MEDS ORDERED: Acetaminophen 325 MG TAB PO PRN (18:42)
[2020-05-29] MEDS: Polyethylene Glycol 3350 17 GM Packet PO PRN (08:55)
[2020-05-29] MEDS: Amiodarone 200 MG TAB PO SCH (08:56)
[2020-05-29] MEDS: Megestrol Acetate 40 MG TAB PO SCH ×2 (08:56→21:28)
[2020-05-29] MEDS: Potassium Chloride 20 MEQ TAB PO SCH (08:56)
[2020-05-29] MEDS: Aspirin 325 mg Enteric Coated Tablet PO SCH (08:56)
[2020-05-29] MEDS: Amlodipine 5 MG TAB PO SCH (08:57)
[2020-05-29] MEDS: hydrALAZINE 25 MG TAB PO SCH ×3 (08:58→21:28)
[2020-05-29] MEDS: Docusate 100 MG CAP PO SCH ×2 (08:58→21:28)
[2020-05-30] MEDS: Potassium Chloride 20 MEQ TAB PO SCH (09:08)
[2020-05-30] MEDS: Aspirin 325 mg Enteric Coated Tablet PO SCH (09:08)
[2020-05-30] MEDS: hydrALAZINE 25 MG TAB PO SCH ×3 (09:08→20:36)
[2020-05-30] MEDS: Amlodipine 5 MG TAB PO SCH (09:09)
[2020-05-30] MEDS: Docusate 100 MG CAP PO SCH ×2 (09:09→20:36)
[2020-05-30] MEDS: Amiodarone 200 MG TAB PO SCH (09:10)
[2020-05-30] MEDS: Megestrol Acetate 40 MG TAB PO SCH ×2 (09:11→20:36)
[2020-05-31] MEDS: Aspirin 325 mg Enteric Coated Tablet PO SCH (08:31)
[2020-05-31] MEDS: Amlodipine 5 MG TAB PO SCH (08:31)
[2020-05-31] MEDS: hydrALAZINE 25 MG TAB PO SCH ×3 (08:31→20:13)
[2020-05-31] MEDS: Potassium Chloride 20 MEQ TAB PO SCH (08:32)
[2020-05-31] MEDS: Amiodarone 200 MG TAB PO SCH (08:32)
[2020-05-31] MEDS: Megestrol Acetate 40 MG TAB PO SCH ×2 (08:32→20:13)
[2020-05-31] MEDS: Docusate 100 MG CAP PO SCH ×2 (08:32→20:13)
[2020-06-01] MEDS: Docusate 100 MG CAP PO SCH ×2 (08:35→20:37)
[2020-06-01] MEDS: Amlodipine 5 MG TAB PO SCH (08:35)
[2020-06-01] MEDS: hydrALAZINE 25 MG TAB PO SCH ×3 (08:35→20:37)
[2020-06-01] MEDS: Aspirin 325 mg Enteric Coated Tablet PO SCH (08:36)
[2020-06-01] MEDS: Amiodarone 200 MG TAB PO SCH (08:36)
[2020-06-01] MEDS: Potassium Chloride 20 MEQ TAB PO SCH (08:36)
[2020-06-01] MEDS: Megestrol Acetate 40 MG TAB PO SCH ×2 (08:36→20:37)
[2020-06-02] MEDS: Potassium Chloride 20 MEQ TAB PO SCH (09:11)
[2020-06-02] MEDS: Amlodipine 5 MG TAB PO SCH (09:13)
[2020-06-02] MEDS: Aspirin 325 mg Enteric Coated Tablet PO SCH (09:14)
[2020-06-02] MEDS: Amiodarone 200 MG TAB PO SCH (09:14)
[2020-06-02] MEDS: Megestrol Acetate 40 MG TAB PO SCH ×2 (09:14→21:51)
[2020-06-02] MEDS: hydrALAZINE 25 MG TAB PO SCH ×3 (09:14→21:51)
[2020-06-02] MEDS: Docusate 100 MG CAP PO SCH ×2 (09:15→21:51)
[2020-06-03 05:30] LABS: Anion Gap 15 mmol/L (10-20); BUN (Urea Nitrogen) 28 mg/dL (9.8-20.1); Calc. Creatinine Clearance 54 mL/min (70-130); Calcium 9.3 mg/dL (7.8-10.44); Carbon Dioxide 19 mmol/L (23-31); Chloride 107 mmol/L (98-107); Glucose 94 mg/dL (83-110); Potassium 4.9 mmol/L (3.5-5.1); Sodium 136 mmol/L (136-145)
[2020-06-03 06:44] VITALS: TEMP 99.1
[2020-06-03] MEDS: hydrALAZINE 25 MG TAB PO SCH (08:56)
[2020-06-03] MEDS: Polyethylene Glycol 3350 17 GM Packet PO PRN (08:56)
[2020-06-03] MEDS: Potassium Chloride 20 MEQ TAB PO SCH (08:57)
[2020-06-03] MEDS: Docusate 100 MG CAP PO SCH (08:58)
[2020-06-03] MEDS: Amiodarone 200 MG TAB PO SCH (08:58)
[2020-06-03] MEDS: Aspirin 325 mg Enteric Coated Tablet PO SCH (08:58)
[2020-06-03] MEDS: Megestrol Acetate 40 MG TAB PO SCH (08:58)
[2020-06-03] MEDS: Amlodipine 5 MG TAB PO SCH (08:58)
[2020-06-03 08:59] VITALS: BP 156/60
--- NOTE | 2020-06-03 09:18 | DIS ---
DATE OF ADMISSION: 05/19/2020 DATE OF DISCHARGE: 06/03/2020 ADMISSION DIAGNOSES: Generalized weakness, status post falls, urinary tract infection, COVID positive, hypertension, paroxysmal atrial fibrillation, hypokalemia, depression, and dementia. PROCEDURES: None. HOSPITAL COURSE: An 85-year-old female presented to our assisted facility, status post acute admission at [facility] in [place], status post progressive weakness and multiple falls at her home. She was found to have evidence of rhabdomyolysis and elevated troponin with concern for NSTEMI. In addition to this, she was noted to have atrial fibrillation with RVR, for which Cardiology was consulted and treated with Cardizem, and eventually transitioned to amiodarone for rate control. Secondary to her fall risk, she is not on anticoagulation medication and is instead on aspirin 325 mg. During her stay, she was also diagnosed with a urinary tract infection and was found to be COVID positive. She had no respiratory compromise at our facility. She transitioned to our facility to participate with physical therapy and occupational therapy and complete her oral antibiotic course. While here, she had no significant setbacks. Amlodipine was added to her medication regimen to better control her blood pressure. Her heart rate has remained within normal limits throughout her stay. She did work with Physical Therapy and Occupational therapy in order to improve upon her functional status; however, secondary to her deconditioned state and underlying dementia, she is not a suitable candidate to safely return to her home setting. Discussion was had with the patient's family including her son, who lives in [place] with plan to transition the patient to [facility], where she will stay with her . At this time, the patient is appropriate to discharge to that facility. DISPOSITION: The patient will discharge to the [facility], where she will live with her . DISCHARGE MEDICATIONS: Include, 1. Tylenol 650 mg q.8 hours p.r.n. 2. Amiodarone 400 mg daily. 3. Amlodipine 5 mg daily. 4. Aspirin 325 mg daily. 5. Dulcolax 10 mg per rectum q.8 hours p.r.n. 6. Colace 100 mg b.i.d. 7. Hydralazine 50 mg t.i.d. 8. Milk of Magnesia 30 mL p.o. daily p.r.n. 9. MiraLAX 17 g p.o. daily p.r.n. 10. Potassium chloride 20 mEq daily. 11. Sertraline 50 mg daily. TIME SPENT: Total time spent discharging this patient, greater than 30 minutes. Job ID: [id number] [id number]
== END 2020-06-03 13:35 | DRG 178 ==
LOC: BURMED 14:13
PROVIDERS: ADMIT Family Medicine; ATTEND Family Medicine
PROC: 8E0ZXY6 Isolation (ICD-10-PCS; principal; 2020-05-19)
DX: U07.1 COVID-19 (principal); N39.0 Urinary tract infection, site not specified; R53.81 Other malaise; R53.1 Weakness; I10 Essential (primary) hypertension; I48.0 Paroxysmal atrial fibrillation; E87.6 Hypokalemia; F32.9 Major depressive disorder, single episode, unspecified; F03.90 Unspecified dementia, unspecified severity, without behavioral disturbance, psychotic disturbance, mood disturbance, and anxiety
CPT/HCPCS: 36415; 80048; 80053; 85025; S0179